=== PATIENT | female | born 1985 | race Caucasian/White ===

== ENCOUNTER 2022-04-03 05:54 | Day surgery (SDC) | payer OTHER ==
[~2022-04-03] VITALS: Ht 157.5 cm; Wt 67.0 kg
[~2022-04-03 05:54] MED LIST: CIPRO500 MG PO; CODE1TAB37 PO; FOLIC ACID1 MG PO; IRON1 TAB PO; LEVSIN/SL0.125 MG PO; MAXFE CAPLET1 EACH PO; PROZAC20 MG PO; VITAMIN D400 UNI1 PO
[2022-04-03] MEDS ORDERED: PERCOCET 5-3251 EACH PO (08:55)
[2022-04-03] MEDS ORDERED: IBU800 MG PO (08:55)
== END 2022-04-03 11:35 | disposition home or self-care (01) ==
LOC: CIR.AMB 05:54
PROVIDERS: ATTEND Obstetrics & Gynecology Gynecology
DX: N83.291 Other ovarian cyst, right side (principal); E78.00 Pure hypercholesterolemia, unspecified; Z86.16 Personal history of COVID-19; D64.9 Anemia, unspecified